=== PATIENT | male | born 1945 | race Caucasian/White ===

== ENCOUNTER 2018-03-12 07:20 | Inpatient (IN) | payer OTHER ==
[~2018-03-12] VITALS: Ht 170.2 cm; Wt 97.9 kg
[~2018-03-12 07:20] MED LIST: BUPIVACAINE 0.25%/EPI 1:200,000/PF 10 ML VIAL ONE; GUM MASTIC/STORAX/MSAL/ALCOHOL LIQUID 0.67 ML VIAL TP ONE; RINGERS SOLUTION,LACTATED 1,000 ML IV ONE
[2018-03-12 07:48] LABS: BASOPHILS % (AUTO) 0.4 % (0.0-2.0); EOSINOPHILS % (AUTO) 5.8 % (1.0-6.0); HEMATOCRIT 46.6 % (41-53); HEMOGLOBIN 16.2 g/dL (13.5-17.5); LYMPHOCYTES # (AUTO) 3.4 K/uL (1.0-4.8); LYMPHOCYTES % (AUTO) 34.8 % (22.0-44.0); MEAN CORPUSCULAR HEMOGLOBIN 30.2 pg (26.0-34.0); MEAN CORPUSCULAR HGB CONC 34.8 G/dL (31.0-37.0); MEAN CORPUSCULAR VOLUME 87 fL (80-100); MONOCYTES # (AUTO) 0.8 K/uL (0.1-1.0); MONOCYTES % (AUTO) 7.6 % (2.0-9.0); NEUTROPHILS # (AUTO) 5.1 K/uL (1.8-7.7); NEUTROPHILS % (AUTO) 51.4 % (40.0-70.0); PLATELET COUNT (AUTO) 254 K/uL (150-450); RED BLOOD CELL COUNT(AUTO) 5.36 MIL/uL (4.50-5.90); RED CELL DISTRIBUTION WIDTH 13.5 % (11.5-14.5)
[2018-03-12 07:57] LABS: CALCIUM, TOTAL 8.1 mg/dL (8.8-10.5); CREATININE 1.29 mg/dL (0.60-1.30); POTASSIUM 3.7 mmol/L (3.5-5.1)
[2018-03-12 07:59] LABS: PROTHROMBIN TIME 10.8 SEC (9.4-11.6)
[2018-03-12] MEDS ORDERED: RINGERS SOLUTION,LACTATED 1,000 ML IV ONE ×2 (08:00→10:41)
[2018-03-12] MEDS ORDERED: CLINDAMYCIN 600 MG/D5% WATER 50 ML IV ONE (08:00)
[2018-03-12] MEDS ORDERED: IPRA4AER IH (08:26)
[2018-03-12] MEDS ORDERED: ASPI81 PO (08:26)
[2018-03-12] MEDS ORDERED: SALI45SP PO (08:26)
[2018-03-12] MEDS ORDERED: ACET-66 PO (08:26)
[2018-03-12] MEDS ORDERED: SYMB8060 IH (08:29)
[2018-03-12] MEDS ORDERED: CLOT10T PO (08:29)
[2018-03-12] MEDS ORDERED: VITAD1000 PO (08:29)
[2018-03-12] MEDS ORDERED: ATOR40TA28 PO (08:29)
[2018-03-12] MEDS ORDERED: CAPS42.55 TP (08:29)
[2018-03-12] MEDS ORDERED: LIDOCAINE 1%/EPI 1:200,000/PF 10 ML VIAL ONE (08:39)
[2018-03-12] MEDS ORDERED: LIDOCAINE 1%/EPI 1:200,000/PF 30 ML VIAL ONE (08:40)
[2018-03-12] MEDS ORDERED: DOCU250C91 PO (08:41)
[2018-03-12] MEDS ORDERED: DICL4100G TP (08:41)
[2018-03-12] MEDS ORDERED: FINA5TAB41 PO (08:41)
[2018-03-12] MEDS ORDERED: FLUT16H NASAL (08:41)
[2018-03-12] MEDS ORDERED: PETR85OI TP (08:41)
[2018-03-12] MEDS ORDERED: FURO20 PO (08:41)
[2018-03-12] MEDS ORDERED: SENN8.6T52 PO (08:41)
[2018-03-12] MEDS ORDERED: SERT100T12 PO (08:41)
[2018-03-12] MEDS ORDERED: PREG75 PO (08:41)
[2018-03-12] MEDS ORDERED: INSNPH SQ ×2 (08:41)
[2018-03-12] MEDS ORDERED: HYDR-3110 PO (08:41)
[2018-03-12] MEDS ORDERED: SIME80 PO (08:41)
[2018-03-12] MEDS ORDERED: TAMS0.4C32 PO (08:44)
[2018-03-12] MEDS ORDERED: BUPIVACAINE 0.25%/EPI 1:200,000/PF 10 ML VIAL ONE (08:49)
[2018-03-12] MEDS ORDERED: HYDROmorphone 2 MG/ML SYRINGE IVP PRN (09:45)
[2018-03-12] MEDS ORDERED: ONDANSETRON HCL 4 MG/2 ML VIAL IVP PRN (09:45)
[2018-03-12] MEDS ORDERED: FentaNYL CITRATE-PF 100 MCG/2 ML VIAL IVP PRN (09:45)
[2018-03-12] MEDS ORDERED: MEPERIDINE HCL/PF 25 MG/0.5 ML AMP IVP PRN (09:45)
[2018-03-12] MEDS ORDERED: ZOLPIDEM TARTRATE 5 MG TABLET PO PRN (09:45)
[2018-03-12] MEDS: DOCUSATE SODIUM 250 MG CAPSULE PO SCH ×2 (11:30→21:01)
[2018-03-12] MEDS: CHOLECALCIFEROL (VIT D3) 1,000 UNITS TABLET PO SCH (11:30)
[2018-03-12] MEDS: FUROSEMIDE 20 MG TABLET PO SCH (11:30)
[2018-03-12] MEDS: INSULIN NPH, HUMAN ISOPHANE 100 UNITS/ML SQ SCH ×2 (11:30→21:02)
[2018-03-12] MEDS: ATORVASTATIN CALCIUM 40 MG TABLET PO SCH (11:30)
[2018-03-12] MEDS ORDERED: FentaNYL CITRATE-PF 100 MCG/2 ML VIAL IVP ONE (12:00)
[2018-03-12] MEDS: BUDESONIDE/FORMOTEROL FUMARATE 80-4.5 MCG/PUFF 6.9 GM INHALER IH SCH ×2 (12:00→21:00)
[2018-03-12] MEDS ORDERED: EPHEDrine SULFATE 50 MG/ML VIAL IM ONE (12:00)
[2018-03-12] MEDS ORDERED: LIDOCAINE/PF 2% 5 ML VIAL INJ ONE (12:00)
[2018-03-12] MEDS ORDERED: PROPOFOL 1% 20 ML VIAL IVP ONE (12:00)
[2018-03-12] MEDS: FLUTICASONE PROPIONATE 50 MCG/SPRAY 16 GM NASAL SPRAY NASAL SCH (12:00)
[2018-03-12] MEDS ORDERED: SUCCINYLCHOLINE CHLORIDE 20 MG/ML 10 ML VIAL IVP ONE (12:00)
[2018-03-12] MEDS: FINASTERIDE 5 MG TABLET PO SCH (12:00)
[2018-03-12] MEDS ORDERED: MORPHINE SULFATE/PF 0.5 MG/ML 10 ML AMP IVP ONE (12:00)
[2018-03-12] MEDS: HydrOXYzine HCL 10 MG TABLET PO SCH ×2 (12:00→21:01)
[2018-03-12] MEDS ORDERED: ROCURONIUM BROMIDE 10 MG/ML 5 ML VIAL IVP ONE (12:00)
[2018-03-12] MEDS ORDERED: MIDAZOLAM HCL 2 MG/2 ML VIAL IVP ONE (12:00)
[2018-03-12] MEDS ORDERED: 0.9% SODIUM CHLORIDE 10 ML VIAL IVP ONE (12:00)
[2018-03-12] MEDS: PREGABALIN 75 MG CAPSULE PO SCH ×2 (12:00→21:00)
[2018-03-12] MEDS ORDERED: PHENYLEPHRINE HCL 10 MG/ML VIAL IVP ONE (12:00)
[2018-03-12 12:44] LABS: GLUCOMETER DEV NAME(LOC) PV 4E2; GLUCOSE,POINT OF CARE 189 MG/DL (70-110)
[2018-03-12 12:58] VITALS: BP 144/74
[2018-03-12] MEDS: DICLOFENAC SODIUM 1% 100 GM GEL [4GM] TP SCH ×3 (13:00→21:00)
[2018-03-12] MEDS: HYDROmorphone 2 MG/ML SYRINGE IVP PRN (14:56)
[2018-03-12] MEDS: ACETAMINOPHEN 1000 MG/ISO-OSM 100 ML IV SCH ×2 (14:59→21:00)
[2018-03-12] MEDS: SIMETHICONE 80 MG CHEWABLE TABLET PO SCH ×2 (15:00→21:01)
[2018-03-12] MEDS: CLOTRIMAZOLE 10 MG TROCHE PO SCH ×2 (15:01→21:01)
[2018-03-12 16:01] VITALS: BP 128/67
[2018-03-12 17:14] LABS: GLUCOMETER DEV NAME(LOC) PV 4E2; GLUCOSE,POINT OF CARE 174 MG/DL (70-110)
[2018-03-12] MEDS: OxyCODONE HCL/ACETAMINOPHEN 10-325 MG TABLET PO PRN ×2 (17:26→20:40)
[2018-03-12] MEDS ORDERED: DEXTROSE 50%-WATER 25 GM/50 ML SYRINGE IVP PRN (19:30)
[2018-03-12 19:46] VITALS: BP 108/62
[2018-03-12] MEDS ORDERED: OXYGEN THERAPY IH SCH (20:00)
[2018-03-12 20:59] LABS: GLUCOMETER DEV NAME(LOC) PV 4E2; GLUCOSE,POINT OF CARE 244 MG/DL (70-110)
[2018-03-12] MEDS ORDERED: PREGABALIN 75 MG CAPSULE PO SCH (21:00)
[2018-03-12] MEDS: TAMSULOSIN HCL 0.4 MG CAPSULE PO SCH (21:01)
[2018-03-12] MEDS: SERTRALINE HCL 100 MG TABLET PO SCH (21:01)
[2018-03-12] MEDS: INSULIN LISPRO 100 UNITS/ML SQ PRN (21:07)
[2018-03-13 00:16] VITALS: BP 105/64
[2018-03-13] MEDS: OxyCODONE HCL/ACETAMINOPHEN 10-325 MG TABLET PO PRN ×2 (00:49→20:33)
[2018-03-13] MEDS: HYDROmorphone 2 MG/ML SYRINGE IVP PRN ×2 (04:06→07:39)
[2018-03-13 06:07] VITALS: BP 118/74
[2018-03-13] MEDS: INSULIN LISPRO 100 UNITS/ML SQ PRN ×3 (06:14→18:24)
[2018-03-13] MEDS: INSULIN NPH, HUMAN ISOPHANE 100 UNITS/ML SQ SCH ×2 (06:30→22:25)
[2018-03-13 07:09] LABS: GLUCOMETER DEV NAME(LOC) PV 4E2; GLUCOSE,POINT OF CARE 143 MG/DL (70-110)
[2018-03-13 07:57] VITALS: BP 99/62
[2018-03-13] MEDS: BUDESONIDE/FORMOTEROL FUMARATE 80-4.5 MCG/PUFF 6.9 GM INHALER IH SCH ×2 (08:35→21:00)
[2018-03-13] MEDS: FLUTICASONE PROPIONATE 50 MCG/SPRAY 16 GM NASAL SPRAY NASAL SCH (08:37)
[2018-03-13] MEDS: DOCUSATE SODIUM 250 MG CAPSULE PO SCH ×2 (08:40→20:29)
[2018-03-13] MEDS: HydrOXYzine HCL 10 MG TABLET PO SCH ×2 (08:40→20:29)
[2018-03-13] MEDS: FUROSEMIDE 20 MG TABLET PO SCH (08:40)
[2018-03-13] MEDS: ATORVASTATIN CALCIUM 40 MG TABLET PO SCH (08:40)
[2018-03-13] MEDS: SIMETHICONE 80 MG CHEWABLE TABLET PO SCH ×3 (08:41→20:31)
[2018-03-13] MEDS: FINASTERIDE 5 MG TABLET PO SCH (08:41)
[2018-03-13] MEDS: CHOLECALCIFEROL (VIT D3) 1,000 UNITS TABLET PO SCH (08:41)
[2018-03-13] MEDS: PREGABALIN 75 MG CAPSULE PO SCH ×2 (08:41→20:30)
[2018-03-13] MEDS: ASPIRIN 81 MG CHEWABLE TABLET PO SCH (08:45)
[2018-03-13] MEDS: CLOTRIMAZOLE 10 MG TROCHE PO SCH ×3 (08:46→20:31)
[2018-03-13] MEDS: DICLOFENAC SODIUM 1% 100 GM GEL [4GM] TP SCH ×4 (08:46→20:32)
[2018-03-13] MEDS ORDERED: ASPIRIN 81 MG CHEWABLE TABLET PO SCH (09:00)
[2018-03-13 11:01] VITALS: BP 104/68
[2018-03-13] MEDS: CYCLOBENZAPRINE HCL 10 MG TABLET PO PRN (11:20)
[2018-03-13] MEDS ORDERED: OxyCODONE HCL/ACETAMINOPHEN 5-325 MG TABLET PO PRN (14:00)
[2018-03-13 14:59] LABS: GLUCOMETER DEV NAME(LOC) PV 4E2; GLUCOSE,POINT OF CARE 205 MG/DL (70-110)
[2018-03-13 15:59] VITALS: BP 107/56
[2018-03-13 20:04] VITALS: BP 112/67
[2018-03-13 20:20] LABS: GLUCOMETER DEV NAME(LOC) 6N 2D; GLUCOSE,POINT OF CARE 271 MG/DL (70-110)
[2018-03-13] MEDS: TAMSULOSIN HCL 0.4 MG CAPSULE PO SCH (20:30)
[2018-03-13] MEDS: SERTRALINE HCL 100 MG TABLET PO SCH (20:32)
[2018-03-13 22:29] LABS: GLUCOMETER DEV NAME(LOC) 6N 1E; GLUCOSE,POINT OF CARE 335 MG/DL (70-110)
[2018-03-14 00:14] VITALS: BP 110/87
[2018-03-14] MEDS: OxyCODONE HCL/ACETAMINOPHEN 10-325 MG TABLET PO PRN ×6 (01:23→20:09)
[2018-03-14 04:00] VITALS: BP 108/66
[2018-03-14] MEDS: INSULIN LISPRO 100 UNITS/ML SQ PRN ×3 (05:55→17:39)
[2018-03-14 06:04] LABS: GLUCOMETER DEV NAME(LOC) 6N 1E; GLUCOSE,POINT OF CARE 217 MG/DL (70-110)
[2018-03-14 08:17] VITALS: BP 126/67
[2018-03-14] MEDS: INSULIN NPH, HUMAN ISOPHANE 100 UNITS/ML SQ SCH ×2 (08:17→21:46)
[2018-03-14] MEDS: ATORVASTATIN CALCIUM 40 MG TABLET PO SCH (08:35)
[2018-03-14] MEDS: CHOLECALCIFEROL (VIT D3) 1,000 UNITS TABLET PO SCH (08:35)
[2018-03-14] MEDS: BUDESONIDE/FORMOTEROL FUMARATE 80-4.5 MCG/PUFF 6.9 GM INHALER IH SCH ×2 (08:35→20:15)
[2018-03-14] MEDS: HydrOXYzine HCL 10 MG TABLET PO SCH ×2 (08:35→20:10)
[2018-03-14] MEDS: FINASTERIDE 5 MG TABLET PO SCH (08:35)
[2018-03-14] MEDS: SIMETHICONE 80 MG CHEWABLE TABLET PO SCH ×3 (08:35→20:11)
[2018-03-14] MEDS: FUROSEMIDE 20 MG TABLET PO SCH (08:36)
[2018-03-14] MEDS: PREGABALIN 75 MG CAPSULE PO SCH ×2 (08:36→20:11)
[2018-03-14] MEDS: ASPIRIN 81 MG CHEWABLE TABLET PO SCH (08:36)
[2018-03-14] MEDS: DOCUSATE SODIUM 250 MG CAPSULE PO SCH ×2 (08:36→20:10)
[2018-03-14] MEDS: CLOTRIMAZOLE 10 MG TROCHE PO SCH ×3 (08:36→20:11)
[2018-03-14] MEDS: DICLOFENAC SODIUM 1% 100 GM GEL [4GM] TP SCH ×4 (08:37→20:12)
[2018-03-14] MEDS: FLUTICASONE PROPIONATE 50 MCG/SPRAY 16 GM NASAL SPRAY NASAL SCH (10:20)
[2018-03-14 11:33] VITALS: BP 124/69
[2018-03-14 15:39] VITALS: BP 115/69
[2018-03-14 19:23] LABS: GLUCOMETER DEV NAME(LOC) 6N 2D; GLUCOSE,POINT OF CARE 204 MG/DL (70-110)
[2018-03-14 19:23] LABS: GLUCOMETER DEV NAME(LOC) 6N 2D; GLUCOSE,POINT OF CARE 190 MG/DL (70-110)
[2018-03-14 19:41] VITALS: BP 129/78
[2018-03-14] MEDS: SERTRALINE HCL 100 MG TABLET PO SCH (20:11)
[2018-03-14] MEDS: TAMSULOSIN HCL 0.4 MG CAPSULE PO SCH (20:11)
[2018-03-14] MEDS: CYCLOBENZAPRINE HCL 10 MG TABLET PO PRN (21:46)
[2018-03-14 22:29] LABS: GLUCOMETER DEV NAME(LOC) 6N 1E; GLUCOSE,POINT OF CARE 228 MG/DL (70-110)
[2018-03-15] VITALS (7 sets, daily range): BP systolic 101–146; BP diastolic 68–87
[2018-03-15] MEDS: OxyCODONE HCL/ACETAMINOPHEN 10-325 MG TABLET PO PRN ×5 (00:02→20:11)
[2018-03-15 07:00] LABS: GLUCOMETER DEV NAME(LOC) 6N 2D; GLUCOSE,POINT OF CARE 147 MG/DL (70-110)
[2018-03-15] MEDS: CHOLECALCIFEROL (VIT D3) 1,000 UNITS TABLET PO SCH (08:26)
[2018-03-15] MEDS: DOCUSATE SODIUM 250 MG CAPSULE PO SCH ×2 (08:26→20:13)
[2018-03-15] MEDS: ASPIRIN 81 MG CHEWABLE TABLET PO SCH (08:27)
[2018-03-15] MEDS: ATORVASTATIN CALCIUM 40 MG TABLET PO SCH (08:27)
[2018-03-15] MEDS: SIMETHICONE 80 MG CHEWABLE TABLET PO SCH ×3 (08:27→20:15)
[2018-03-15] MEDS: PREGABALIN 75 MG CAPSULE PO SCH ×2 (08:27→20:14)
[2018-03-15] MEDS: FUROSEMIDE 20 MG TABLET PO SCH (08:27)
[2018-03-15] MEDS: HydrOXYzine HCL 10 MG TABLET PO SCH ×2 (08:27→20:13)
[2018-03-15] MEDS: CLOTRIMAZOLE 10 MG TROCHE PO SCH ×3 (08:28→20:14)
[2018-03-15] MEDS: DICLOFENAC SODIUM 1% 100 GM GEL [4GM] TP SCH ×4 (08:28→20:16)
[2018-03-15] MEDS: FINASTERIDE 5 MG TABLET PO SCH (08:29)
[2018-03-15] MEDS: FLUTICASONE PROPIONATE 50 MCG/SPRAY 16 GM NASAL SPRAY NASAL SCH (08:29)
[2018-03-15] MEDS: BUDESONIDE/FORMOTEROL FUMARATE 80-4.5 MCG/PUFF 6.9 GM INHALER IH SCH ×3 (08:29→20:57)
[2018-03-15] MEDS: HYDROmorphone 2 MG/ML SYRINGE IVP PRN (08:31)
[2018-03-15] MEDS: ALBUTEROL SULFATE/IPRATROPIUM 100-20 MCG/SPRAY 4 GM INHALER IH PRN ×2 (08:36→20:12)
[2018-03-15] MEDS: INSULIN NPH, HUMAN ISOPHANE 100 UNITS/ML SQ SCH ×2 (08:43→21:04)
[2018-03-15 09:59] LABS: GLUCOMETER DEV NAME(LOC) 6N 2D; GLUCOSE,POINT OF CARE 229 MG/DL (70-110)
[2018-03-15] MEDS: INSULIN LISPRO 100 UNITS/ML SQ PRN ×2 (11:43→21:03)
[2018-03-15 11:54] LABS: GLUCOMETER DEV NAME(LOC) 6N 2D; GLUCOSE,POINT OF CARE 203 MG/DL (70-110)
[2018-03-15 19:49] LABS: GLUCOMETER DEV NAME(LOC) 6N 1E; GLUCOSE,POINT OF CARE 118 MG/DL (70-110)
[2018-03-15] MEDS: TAMSULOSIN HCL 0.4 MG CAPSULE PO SCH (20:14)
[2018-03-15] MEDS: SERTRALINE HCL 100 MG TABLET PO SCH (20:15)
[2018-03-15 21:44] LABS: GLUCOMETER DEV NAME(LOC) 6N 2D; GLUCOSE,POINT OF CARE 152 MG/DL (70-110)
[2018-03-16] MEDS: OxyCODONE HCL/ACETAMINOPHEN 10-325 MG TABLET PO PRN ×2 (02:01→05:53)
[2018-03-16 05:01] VITALS: BP 137/85
[2018-03-16] MEDS: INSULIN NPH, HUMAN ISOPHANE 100 UNITS/ML SQ SCH (05:54)
[2018-03-16 07:05] LABS: GLUCOMETER DEV NAME(LOC) 6N 1E; GLUCOSE,POINT OF CARE 100 MG/DL (70-110)
[2018-03-16 07:25] VITALS: BP 140/83
[2018-03-16] MEDS: ASPIRIN 81 MG CHEWABLE TABLET PO SCH (08:31)
[2018-03-16] MEDS: ATORVASTATIN CALCIUM 40 MG TABLET PO SCH (08:32)
[2018-03-16] MEDS: DOCUSATE SODIUM 250 MG CAPSULE PO SCH (08:32)
[2018-03-16] MEDS: FINASTERIDE 5 MG TABLET PO SCH (08:32)
[2018-03-16] MEDS: PREGABALIN 75 MG CAPSULE PO SCH (08:32)
[2018-03-16] MEDS: DICLOFENAC SODIUM 1% 100 GM GEL [4GM] TP SCH (08:38)
[2018-03-16] MEDS: CHOLECALCIFEROL (VIT D3) 1,000 UNITS TABLET PO SCH (08:38)
[2018-03-16] MEDS: CLOTRIMAZOLE 10 MG TROCHE PO SCH (08:39)
[2018-03-16] MEDS: SIMETHICONE 80 MG CHEWABLE TABLET PO SCH (08:39)
[2018-03-16] MEDS: FUROSEMIDE 20 MG TABLET PO SCH (08:39)
[2018-03-16] MEDS: HydrOXYzine HCL 10 MG TABLET PO SCH (08:40)
[2018-03-16] MEDS: BUDESONIDE/FORMOTEROL FUMARATE 80-4.5 MCG/PUFF 6.9 GM INHALER IH SCH (08:40)
[2018-03-16] MEDS: FLUTICASONE PROPIONATE 50 MCG/SPRAY 16 GM NASAL SPRAY NASAL SCH (08:40)
[2018-03-16] MEDS ORDERED: OXYC5TAB3 PO ×2 (09:53→09:54)
[2018-03-16] MEDS ORDERED: OXYC10TA93 PO (09:55)
[2018-03-16] MEDS ORDERED: OXYC10IR PO (09:57)
[2018-03-16] MEDS: CYCLOBENZAPRINE HCL 10 MG TABLET PO PRN (10:55)
[2018-03-16 11:13] VITALS: BP 126/76
== END 2018-03-16 12:00 | disposition home or self-care (01) | DRG 460 ==
LOC: SURGERY 07:20 → 4E 10:38 → 6N 03-13 17:05
PROVIDERS: ADMIT Orthopaedic Surgery; ATTEND Orthopaedic Surgery
PROC: 0SG00K1 Fusion of Lumbar Vertebral Joint with Nonautologous Tissue Substitute, Posterior Approach, Posterior Column, Open Approach (ICD-10-PCS; principal; 2018-03-16)
PROC: 0SG30K1 Fusion of Lumbosacral Joint with Nonautologous Tissue Substitute, Posterior Approach, Posterior Column, Open Approach (ICD-10-PCS; 2018-03-16)
DX: M51.27 Other intervertebral disc displacement, lumbosacral region (principal); B15.9 Hepatitis A without hepatic coma; M48.07 Spinal stenosis, lumbosacral region; M12.88 Other specific arthropathies, not elsewhere classified, other specified site; E11.9 Type 2 diabetes mellitus without complications; M48.061 Spinal stenosis, lumbar region without neurogenic claudication; F43.10 Post-traumatic stress disorder, unspecified; I10 Essential (primary) hypertension; E78.00 Pure hypercholesterolemia, unspecified; Z90.49 Acquired absence of other specified parts of digestive tract; G43.909 Migraine, unspecified, not intractable, without status migrainosus; J44.9 Chronic obstructive pulmonary disease, unspecified; I25.2 Old myocardial infarction; F32.9 Major depressive disorder, single episode, unspecified; Z79.82 Long term (current) use of aspirin; Z88.0 Allergy status to penicillin
CPT/HCPCS: 87081; 93005; 97161; 97166; 97530; 97535; G0238; J0131; J0330; J1170; J1815; J2250; J2274; J2370; J2704; J3010; J3490; J7120